=== PATIENT | male | born 1990 | race African-American/Black ===

== ENCOUNTER 2019-09-12 12:38 | Emergency (ER) | payer SELFPAY ==
[2019-09-12] MEDS ORDERED: RINGERS SOLUTION,LACTATED 1,000 ML IV ONE (13:07)
--- NOTE | 2019-09-12 13:07 | ER Document Report ---
ED GI/ - General Chief Complaint: Constipation Stated Complaint: ABDOMINAL PAIN Time Seen by Provider: 09/12/19 12:58 Mode of Arrival: Ambulatory Information source: Patient Notes: 28-year-old male with no previous medical problems presents to the emergency room complaining of rectal pain with bleeding that started 2 days ago. Abdominal pain started yesterday. States he has not been able to have a bowel movement since Saturday every time he strains to have a bowel movement he notices blood from his rectum. No stool. No history of hemorrhoids. No rectal trauma, no rectal intercourse. Has not been taking any medications for his symptoms. TRAVEL OUTSIDE OF THE [place] IN LAST 30 DAYS: No - Related Data Allergies/Adverse Reactions: No Known Allergies Allergy (Unverified 09/12/19 12:52) Past Medical History - General Information source: Patient - Social History Smoking Status: Never Smoker Chew tobacco use (# tins/day): No Frequency of alcohol use: None Drug Abuse: None Family History: Reviewed & Not Pertinent Patient has homicidal ideation: No Review of Systems - Review of Systems Constitutional: No symptoms reported Cardiovascular: No symptoms reported Respiratory: No symptoms reported Gastrointestinal: Abdominal pain, Constipation, Rectal bleeding. denies: Nausea, Vomiting Musculoskeletal: No symptoms reported Skin: denies: Rash Neurological/Psychological: No symptoms reported -: Yes All other systems reviewed and negative Physical Exam - Vital signs Vitals: Temp Pulse Resp BP Pulse Ox 98.9 F 86 16 150/82 H 90 L 09/12/19 12:50 09/12/19 12:50 09/12/19 12:50 09/12/19 12:50 09/12/19 12:50 - General General appearance: Appears well, Alert In distress: Mild - HEENT Head: Normocephalic, Atraumatic Eyes: Normal Pupils: PERRL - Respiratory Respiratory status: No respiratory distress Chest status: Nontender Breath sounds: Normal Chest palpation: Normal - Cardiovascular Rhythm: Regular Heart sounds: Normal auscultation Murmur: No - Abdominal Inspection: Normal Distension: No distension Bowel sounds: Normal Tenderness: Nontender Organomegaly: No organomegaly - Rectal Tenderness: No Stool: Heme positive Hemorrhoids: External Prostate: Boggy - Back Back: Normal, Nontender. No: CVA tenderness - Neurological Neuro grossly intact: Yes Cognition: Normal Orientation: AAOx4 Jovita Coma Scale Eye Opening: Spontaneous Jovita Coma Scale Verbal: Oriented Jovita Coma Scale Motor: Obeys Commands Urania Coma Scale Total: 15 Speech: Normal Motor strength normal: LUE, RUE, LLE, RLE Sensory: Normal - Skin Skin Temperature: Warm Skin Moisture: Dry Skin Color: Normal Course - Re-evaluation Re-evalutation: 09/12/19 15:54 Patient is resting comfortably he is currently pain-free. Reviewed CAT scan and lab results with patient. Rectal as documented. Aware that we still need to get a urinalysis. 09/12/19 17:10 Patient's resting comfortably he is currently pain-free. Reviewed all test results with patient. Counseled take medications as prescribed. Outpatient follow-up with a primary care physician as discussed. Patient was provided with on-call physician. He was given strict return to the emergency room guidelines. He is to return for any new or worsening symptoms. All questions were answered. Patient verbalized understanding and agrees with plan of care. 09/12/19 17:15 - Vital Signs Vital signs: Temp Pulse Resp BP Pulse Ox 98.9 F 80 16 117/62 97 09/12/19 18:25 09/12/19 18:25 09/12/19 18:25 09/12/19 18:25 09/12/19 18:25 - Laboratory Result Diagrams: 09/12/19 13:30 09/12/19 13:30 Laboratory results interpreted by me: 09/12/19 13:30 Sodium 136.3 L Carbon Dioxide 31 H - Diagnostic Test Radiology reviewed: Reports reviewed Discharge - Discharge Clinical Impression: Prostatitis Qualifiers: Prostatitis type: unspecified Qualified Code(s): N41.9 - Inflammatory disease of prostate, unspecified Hemorrhoids Qualifiers: Hemorrhoid type: unspecified Qualified Code(s): K64.9 - Unspecified hemorrhoids Condition: Stable Disposition: HOME, SELF-CARE Instructions: Abdominal Pain ([facility]), Hemorrhoids ([facility]), Prostatitis ([facility]) Additional Instructions: Medications as prescribed. Outpatient follow-up with primary care physician as discussed. You were provided with the on-call physician. Return for any new or worsening symptoms. Prescriptions: Hydrocortisone Acetate [Anusol-Hc] 25 mg RC BID 5 Days #10 supp.rect Doxycycline Monohydrate 100 mg PO BID #20 capsule
[2019-09-12 14:06] LABS: ABSOLUTE EOSINOPHILS # (AUTO) 0.1 10^3/uL (0.0-0.6); ABSOLUTE LYMPHOCYTES (AUTO) 1.6 10^3/uL (0.5-4.7); ABSOLUTE MONOCYTES (AUTO) 0.7 10^3/uL (0.1-1.4); ABSOLUTE NEUT (AUTO) 3.9 10^3/uL (1.7-8.2); BASOPHILS % (AUTO) 0.4 % (0-2); EOSINOPHILS % (AUTO) 0.9 % (0-6); HEMATOCRIT 41.4 % (37.9-51.0); LYMPHOCYTES % (AUTO) 25.7 % (13-45); MEAN CORPUSCULAR HEMOGLOBIN 30.1 pg (27.0-33.4); MEAN CORPUSCULAR HGB CONC 33.7 g/dL (32.0-36.0); MEAN CORPUSCULAR VOLUME 89 fl (80-97); MONOCYTES % (AUTO) 10.6 % (3-13); PLATELET COUNT 202 10^3/uL (150-450); RED BLOOD COUNT 4.64 10^6/uL (4.35-5.55); RED CELL DISTRIBUTION WIDTH 13.1 % (11.5-14.0); SEGMENTED NEUTROPHILS % (AUTO) 62.4 % (42-78); TOTAL CELLS COUNTED % (AUTO) 100 %; WHITE BLOOD COUNT 6.3 10^3/uL (4.0-10.5)
[2019-09-12 14:15] LABS: ALBUMIN 4.4 g/dL (3.5-5.0); ALKALINE PHOSPHATASE 49 U/L (38-126); ANION GAP 7 (5-19); ASPARTATE AMINO TRANSFERASE 26 U/L (17-59); BILIRUBIN,DIRECT 0.3 mg/dL (0.0-0.4); BILIRUBIN,TOTAL 0.8 mg/dL (0.2-1.3); BLOOD UREA NITROGEN 12 mg/dL (7-20); CALCIUM 9.4 mg/dL (8.4-10.2); CARBON DIOXIDE 31 mmol/L (22-30); CHLORIDE 98 mmol/L (98-107); GLUCOSE 106 mg/dL (75-110); POTASSIUM 4.5 mmol/L (3.6-5.0); TOTAL PROTEIN 7.5 g/dL (6.3-8.2)
[2019-09-12] MEDS ORDERED: KETOROLAC TROMETHAMINE INJ/PF 30 MG/1 ML SDV IV ONE (14:46)
--- NOTE | 2019-09-12 15:11 | RADIOLOGY REPORT (SQ) ---
EXAM DESCRIPTION: CT ABD/PELVIS WITH IV ONLY IMAGES COMPLETED DATE/TIME: 09/12/2019 2:33 pm REASON FOR STUDY: abdominal pain COMPARISON: None. TECHNIQUE: CT scan of the abdomen and pelvis performed using helical scanning technique with dynamic intravenous contrast injection. No oral contrast. Images reviewed with lung, soft tissue, and bone windows. Reconstructed coronal and sagittal MPR images reviewed. Delayed images for evaluation of the urinary system also acquired. All images stored on PACS. All CT scanners at this facility use dose modulation, iterative reconstruction, and/or weight based d osing when appropriate to reduce radiation dose to as low as reasonably achievable (ALARA). [facility]: Dose Right [facility]: CareDose [facility]: Dose Right [facility]: Teradose 4D [facility]: restOpolis CONTRAST TYPE AND DOSE: contrast/concentration: Isovue 350.00 mg/ml; Total Contrast Delivered: 100.0 ml; Total Saline Delivered: 72.0 ml RENAL FUNCTION: None required. The patient is less than 50 years old. RADIATION DOSE: CT Rad equipment meets quality standard of care and radiation dose reduction techniq ues were employed. CTDIvol: 16.8 - 20.6 mGy. DLP: 2269 mGy-cm.. LIMITATIONS: None. FINDINGS: LOWER CHEST: No significant findings. No nodules or infiltrates. LIVER: Normal size. No masses. No dilated ducts. SPLEEN: Normal size. No focal lesions. PANCREAS: No masses. No significant calcifications. No adjacent inflammation or peripancreatic fluid collections. Pancreatic duct not dilated. GALLBLADDER: No identified stones by CT criteria. No inflammatory changes to suggest cholecystitis. ADRENAL GLANDS: No significant masses or asymmetry. RIGHT KIDNEY AND URETER: No solid masses. No significant calcifications. No hydronephrosis or hyd roureter. LEFT KIDNEY AND URETER: No solid masses. No significant calcifications. No hydronephrosis or hydr oureter. AORTA AND VESSELS: No aneurysm. No dissection. Renal arteries, SMA, celiac without stenosis. RETROPERITONEUM: No retroperitoneal adenopathy, hemorrhage or masses. BOWEL AND PERITONEAL CAVITY: No masses or inflammatory changes. No free fluid or peritoneal masses. APPENDIX: Normal. PELVIS: There is inflammatory stranding in the deep pelvic fat along tissue planes between the rectum and prostate/seminal vesicles several small less than 5 cm perirectal lymph nodes are present on axi al images 83-90. Question anorectal inflammation versus prostatitis. No pelvic free fluid. Bladder unremarkable. ABDOMINAL WALL: No masses. No hernias. BONES: No significant or acute findings. OTHER: No other significant finding. IMPRESSION: Inflammation in the deep pelvic fat along the prostate/seminal vesicles and perirectal r egion with small lymph nodes present. Question anorectal inflammation versus prostatitis. TECHNICAL DOCUMENTATION: JOB ID: [id number] Quality ID # [id number]: Final reports with documentation of one or more dose reduction techniques (e.g., Au tomated exposure control, adjustment of the mA and/or kV according to patient size, use of iterative reconstruction technique) 2010 [employer]- All Rights Reserved Reading location - IP/workstation name: [id number]
[2019-09-12 16:34] LABS: APPEARANCE,URINE CLEAR; BILIRUBIN,URINE NEGATIVE (NEGATIVE); COLOR,URINE STRAW; GLUCOSE, URINE NEGATIVE (NEGATIVE); KETONES,URINE NEGATIVE (NEGATIVE); LEUKOCYTE ESTERASE,URINE NEGATIVE (NEGATIVE); NITRITE,URINE NEGATIVE (NEGATIVE); PROTEIN,URINE NEGATIVE (NEGATIVE); URINE SPECIFIC GRAVITY 1.058; UROBILINOGEN,URINE NEGATIVE mg/dL (<2.0)
[2019-09-12] MEDS ORDERED: ONDANSETRON HCL INJ/PF 4 MG/2 ML SDV IV ONE (16:37)
[2019-09-12] MEDS ORDERED: CEFTRIAXONE INJ 250 MG VIAL IV ONE (17:12)
[2019-09-12 18:29] VITALS: BP 117/62
== END 2019-09-12 18:31 | disposition home or self-care (01) ==
LOC: ER 12:38
DX: N41.9 Inflammatory disease of prostate, unspecified (principal); K64.9 Unspecified hemorrhoids; K59.00 Constipation, unspecified; K62.89 Other specified diseases of anus and rectum; R19.5 Other fecal abnormalities; R10.9 Unspecified abdominal pain
CPT/HCPCS: 36415; 83690; 85025; 80053; 81001; 74177; J1885; J2405; J7120; J0696

== ENCOUNTER 2020-02-21 20:19 | Emergency (ER) | payer SELFPAY ==
--- NOTE | 2020-02-21 20:29 | ER Document Report ---
ED Medical Screen (RME) - General Chief Complaint: Hemorrhoids Stated Complaint: RECTAL BLEED POSS TEAR OR HEMORRHOIDS Time Seen by Provider: 02/21/20 20:24 Notes: Patient presents complaining of possible hemorrhoids as he is having rectal tend erness and bleeding. The patient also complains of an infected sore to the right groin area that has been there for the past 4 days. Patient denies any fever. Patient denies any lightheadedness or dizziness. I have greeted and performed a rapid initial assessment of this patient. A comprehensive ED assessment and evaluation of the patient, analysis of test results and completion of the medical decision making process will be conducted by additional ED providers. TRAVEL OUTSIDE OF THE [place] IN LAST 30 DAYS: No - Related Data Allergies/Adverse Reactions: No Known Allergies Allergy (Unverified 09/12/19 12:52) Past Medical History Past Surgical History: Reports: Hx Genitourinary Surgery - CIRCUMCISION Physical Exam - Vital signs Vitals: Temp Pulse Resp BP Pulse Ox 98.1 F 92 18 174/100 H 85 L 02/21/20 20:28 02/21/20 20:28 02/21/20 20:28 02/21/20 20:28 02/21/20 20:28 - General General appearance: Appears well, Alert Notes: Rectal exam deferred as patient is in triage Course - Vital Signs Vital signs: Temp Pulse Resp BP Pulse Ox 98.1 F 92 18 174/100 H 85 L 02/21/20 20:28 02/21/20 20:28 02/21/20 20:28 02/21/20 20:28 02/21/20 20:28
--- NOTE | 2020-02-22 00:26 | ER Document Report ---
ED General - General Chief Complaint: Skin Problem Stated Complaint: RECTAL BLEED POSS TEAR OR HEMORRHOIDS Time Seen by Provider: 02/21/20 20:24 Primary Care Provider: [facility] [Provider Group] - Follow up in 1 week Notes: Patient is a 29-year-old male who comes emergency department for chief complaint of rectal bleeding. He also reports general tenderness over the area. He denies abdominal pain, he states bowel movements are somewhat uncomfortable but bearable. He denies fever, nausea vomiting. Patient also states that he has a sore that was on the right side of his genitals at the groin although this opened, drained, and is no longer painful. He denies any daily medications. He does report having hemorrhoids in the past and states he used a suppository for it. TRAVEL OUTSIDE OF THE [place] IN LAST 30 DAYS: No - Related Data Allergies/Adverse Reactions: No Known Allergies Allergy (Unverified 09/12/19 12:52) Home Medications: vit c Past Medical History - General Information source: Patient - Social History Smoking Status: Never Smoker Frequency of alcohol use: None Drug Abuse: None Lives with: Family Family History: Reviewed & Not Pertinent Past Surgical History: Reports: Hx Genitourinary Surgery - CIRCUMCISION - Immunizations Immunizations up to date: Yes Hx Diphtheria, Pertussis, Tetanus Vaccination: Yes Review of Systems - Review of Systems Constitutional: No symptoms reported EENT: No symptoms reported Cardiovascular: No symptoms reported Respiratory: No symptoms reported Gastrointestinal: See HPI Genitourinary: No symptoms reported Male Genitourinary: No symptoms reported Musculoskeletal: No symptoms reported Skin: No symptoms reported Hematologic/Lymphatic: No symptoms reported Neurological/Psychological: No symptoms reported Physical Exam - Vital signs Vitals: Temp Pulse Resp BP Pulse Ox 98.1 F 92 18 174/100 H 98 02/21/20 20:28 02/21/20 20:28 02/21/20 20:28 02/21/20 20:28 02/21/20 20:28 - Notes Notes: GENERAL: Alert, interacts well. No acute distress. HEAD: Normocephalic, atraumatic. EYES: Pupils equal, round, and reactive to light. Extraocular movements intact. ENT: Oral mucosa moist, tongue midline. Oropharynx unremarkable. Airway patent. NECK: Full range of motion. Supple. Trachea midline. No lymphadenopathy. LUNGS: Clear to auscultation bilaterally, no wheezes, rales, or rhonchi. No respiratory distress. Non-tender chest wall. HEART: Regular rate and rhythm. No murmur ABDOMEN: Soft, non-tender. Non-distended. Bowel sounds present in all 4 quadrants. GENITOURINARY: No rashes, lesions, tenderness, swelling, or concerning findings. Exam for genitourinary and rectal exam performed with Samantha MCCLAIN at bedside. RECTAL: Internal hemorrhoid noted at approximately the 4 o'clock position, no current bleeding, no noted tenderness on rectal exam. Surrounding the anus and slightly in the gluteal crevice there are noted to be multiple lesions consistent with condyloma acuminata. No noted erythema, swelling, tenderness, or other concerning findings. EXTREMITIES: Moves all 4 extremities spontaneously. No edema, normal radial and dorsalis pedis pulses bilaterally. No cyanosis. BACK: no cervical, thoracic, lumbar midline tenderness. No saddle anesthesia, normal distal neurovascular exam. Moves all extremities in full range of motion. NEUROLOGICAL: Alert and oriented x3. Normal speech. Cranial nerves II through XII grossly intact. Strength 5/5 in all extremities. PSYCH: Normal affect, normal mood. SKIN: Warm, dry, normal turgor. No rashes or lesions noted. Course - Re-evaluation Re-evalutation: Patient with small internal hemorrhoid which is unremarkable, no evidence of fissure or abscess, although he does have significant condyloma acuminata on exam. The sore over the groin/genital area is resolved and there is no tenderness, fluctuance, or concerning signs of infection or abscess. In addition to this patient is hypertensive today. He does not have a headache or chest pain. Patient does admit to being constipated. I discussed treatments, options, and decision was made to proceed with stool softener, topical medication for the anal warts, and patient will be rechecked by primary care for his blood pressure. Patient states understanding and agreement. 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 Apply the imiquimod as prescribed, follow-up closely with primary care for additional management of this. See referral. Your exam also shows an internal hemorrhoid, avoid any straining on the toilet, take the Colace stool softener for the next several days, eat plenty of fiber, stay hydrated. This should simply go away with time. The area on your groin that was infection appears to be resolved, keep the area clean with soap and water. Your blood pressure was very elevated in the emergency department today, this needs to be rechecked and you may need blood pressure medication, please follow- up with primary care closely for this as well. Return for any concerning symptoms including developing severe pain, fever, or any other concerning or worsening symptoms. Prescriptions: Imiquimod [Aldara 5% Cream 0.25 gm Pkt] 1 each TOP ASDIR PRN #24 packet PRN Reason: Docusate Sodium [Colace 100 mg Capsule] 100 mg PO ASDIR PRN #30 capsule PRN Reason: Forms: Return to Work Referrals: [facility] [Provider Group] - Follow up in 1 week
[2020-02-22 00:48] VITALS: BP 135/76
== END 2020-02-22 00:48 | disposition home or self-care (01) ==
LOC: ER 20:19
DX: A63.0 Anogenital (venereal) warts (principal); K64.8 Other hemorrhoids
CPT/HCPCS: 99284

== ENCOUNTER 2020-03-11 18:06 | Emergency (ER) | payer SELFPAY ==
--- NOTE | 2020-03-11 18:21 | ER Document Report ---
ED Medical Screen (RME) - General Chief Complaint: Rectal Bleeding Stated Complaint: RECTAL BLEEDING Time Seen by Provider: 03/11/20 18:13 Mode of Arrival: Ambulatory Information source: Patient Notes: 29-year-old male presented to ED for complaint of increased pain in his hemorrhoids. He states they are bleeding every time he has a bowel movement. He states they are not bleeding except when he has a bowel movement. He is a former smoker occasionally drinks. He states they have been much more painful and he has been using hemorrhoid suppositories. I cannot examine a hemorrhoid in the triage area so he will need to wait till he gets back to the back to have his hemorrhoids examined. I have greeted and performed a rapid initial assessment of this patient. A comprehensive ED assessment and evaluation of the patient, analysis of test results and completion of medical decision making process will be conducted by an additional ED providers. TRAVEL OUTSIDE OF THE [place] IN LAST 30 DAYS: No - Related Data Allergies/Adverse Reactions: No Known Allergies Allergy (Unverified 09/12/19 12:52) Past Medical History Past Surgical History: Reports: Hx Genitourinary Surgery - CIRCUMCISION - Immunizations Immunizations up to date: Yes Hx Diphtheria, Pertussis, Tetanus Vaccination: Yes Physical Exam - Vital signs Vitals: Temp Pulse Resp BP Pulse Ox 98.2 F 80 20 160/101 H 99 03/11/20 18:16 03/11/20 18:16 03/11/20 18:16 03/11/20 18:16 03/11/20 18:16 Course - Vital Signs Vital signs: Temp Pulse Resp BP Pulse Ox 98.2 F 80 20 160/101 H 99 03/11/20 18:16 03/11/20 18:16 03/11/20 18:16 03/11/20 18:16 03/11/20 18:16
[2020-03-11] MEDS ORDERED: HYDROCODONE/ACETAMINOPHEN 5-325 MG TABLET PO ONE (18:29)
[2020-03-11 19:04] LABS: ABSOLUTE BASOPHILS # (AUTO) 0.1 10^3/uL (0.0-0.2); ABSOLUTE EOSINOPHILS # (AUTO) 0.1 10^3/uL (0.0-0.6); ABSOLUTE LYMPHOCYTES (AUTO) 3.1 10^3/uL (0.5-4.7); ABSOLUTE MONOCYTES (AUTO) 0.7 10^3/uL (0.1-1.4); ABSOLUTE NEUT (AUTO) 7.3 10^3/uL (1.7-8.2); BASOPHILS % (AUTO) 0.6 % (0-2); EOSINOPHILS % (AUTO) 0.8 % (0-6); HEMATOCRIT 41.2 % (37.9-51.0); HEMOGLOBIN 13.7 g/dL (13.5-17.0); LYMPHOCYTES % (AUTO) 27.4 % (13-45); MEAN CORPUSCULAR HGB CONC 33.2 g/dL (32.0-36.0); MEAN CORPUSCULAR VOLUME 90 fl (80-97); MONOCYTES % (AUTO) 5.8 % (3-13); PLATELET COUNT 293 10^3/uL (150-450); RED BLOOD COUNT 4.56 10^6/uL (4.35-5.55); RED CELL DISTRIBUTION WIDTH 13.2 % (11.5-14.0); SEGMENTED NEUTROPHILS % (AUTO) 65.4 % (42-78); TOTAL CELLS COUNTED % (AUTO) 100 %; WHITE BLOOD COUNT 11.2 10^3/uL (4.0-10.5)
[2020-03-11 19:22] LABS: ALBUMIN 4.7 g/dL (3.5-5.0); ALKALINE PHOSPHATASE 45 U/L (38-126); ANION GAP 14 (5-19); ASPARTATE AMINO TRANSFERASE 29 U/L (17-59); BILIRUBIN,DIRECT 0.1 mg/dL (0.0-0.4); BILIRUBIN,TOTAL 0.3 mg/dL (0.2-1.3); BLOOD UREA NITROGEN 13 mg/dL (7-20); CARBON DIOXIDE 25 mmol/L (22-30); CHLORIDE 99 mmol/L (98-107); GLUCOSE 111 mg/dL (75-110); POTASSIUM 4.3 mmol/L (3.6-5.0)
[2020-03-11 20:36] LABS: APPEARANCE,URINE CLEAR; BILIRUBIN,URINE NEGATIVE (NEGATIVE); COLOR,URINE YELLOW; GLUCOSE, URINE NEGATIVE (NEGATIVE); KETONES,URINE NEGATIVE (NEGATIVE); LEUKOCYTE ESTERASE,URINE NEGATIVE (NEGATIVE); NITRITE,URINE NEGATIVE (NEGATIVE); PROTEIN,URINE NEGATIVE (NEGATIVE); URINE SPECIFIC GRAVITY 1.015; UROBILINOGEN,URINE NEGATIVE mg/dL (<2.0)
--- NOTE | 2020-03-12 | ER Document Report ---
ED GI Bleed / Rectal Pain - General Chief Complaint: Rectal Bleeding Stated Complaint: RECTAL BLEEDING Time Seen by Provider: 03/11/20 18:13 Primary Care Provider: KARINE VAZQUEZ MD [ACTIVE STAFF] - Follow up as needed Mode of Arrival: Ambulatory Information source: Patient, [facility] Records Notes: Patient is a 29-year-old male returns to the emergency room complaining of continuation of his hemorrhoids. Patient states he was in here approximately 1 week ago for the same he was given stool softeners and he has been using reparation H suppositories without much relief. Patient states he has not followed up with a surgeon. He states that very uncomfortable. He denies having large volume of blood out only when he wipes most of the time. 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 Denies smoking. TRAVEL OUTSIDE OF THE [place] IN LAST 30 DAYS: No - HPI Patient complains to provider of: Hemorrhoids Onset: Other - Chronic Timing/Duration: Persistent Quality of pain: Achy Severity of symptoms: Moderate Pain Level: 3 Rectal bleeding: Bleeding w/o stool Rectal foreign body: No Rectal pain with intercourse: Yes Associated symptoms: None Exacerbated by: Other - Bowel movement Relieved by: Denies Similar symptoms previously: Yes Recently seen / treated by doctor: Yes - Related Data Allergies/Adverse Reactions: No Known Allergies Allergy (Unverified 09/12/19 12:52) Past Medical History - General Information source: Patient - Social History Smoking Status: Former Smoker Chew tobacco use (# tins/day): No Frequency of alcohol use: None Drug Abuse: None Lives with: Family Family History: Reviewed & Not Pertinent Patient has homicidal ideation: No Past Surgical History: Reports: Hx Genitourinary Surgery - CIRCUMCISION, Hx Ort hopedic Surgery - knee 2014 - Immunizations Immunizations up to date: Yes Hx Diphtheria, Pertussis, Tetanus Vaccination: Yes Review of Systems - Review of Systems Constitutional: No symptoms reported EENT: No symptoms reported Cardiovascular: No symptoms reported Respiratory: No symptoms reported Gastrointestinal: No symptoms reported, Constipation, Blood streaked bowels Genitourinary: No symptoms reported Male Genitourinary: No symptoms reported Musculoskeletal: No symptoms reported Skin: No symptoms reported Hematologic/Lymphatic: No symptoms reported Neurological/Psychological: No symptoms reported -: Yes All other systems reviewed and negative Physical Exam - Vital signs Vitals: Temp Pulse Resp BP Pulse Ox 98.2 F 80 20 160/101 H 99 03/11/20 18:16 03/11/20 18:16 03/11/20 18:16 03/11/20 18:16 03/11/20 18:16 Interpretation: Hypertensive Notes: PHYSICAL EXAMINATION: GENERAL: Well-appearing, well-nourished and in no acute distress. HEAD: Atraumatic, normocephalic. LUNGS: Breath sounds clear to auscultation bilaterally and equal. No wheezes rales or rhonchi. HEART: Regular rate and rhythm without murmurs ABDOMEN: Soft, nontender, nondistended abdomen. No guarding, no rebound. No masses appreciated. Examination patient's rectal area shows patient to have external hemorrhoids probably about 3 that can be seen. They are not engorged and there is no thrombosis. No bloody streaks seen on examination. Musculoskeletal: Normal range of motion, no pitting or edema. No cyanosis. NEUROLOGICAL: t. Normal speech, normal gait. Normal sensory, motor exams PSYCH: Normal mood, normal affect. SKIN: Warm, Dry, normal turgor, no rashes or lesions noted. Course - Re-evaluation Re-evalutation: 03/12/20 02:42 Patient has a history of these was seen approximately a week ago here and placed on stool softeners. This is been an on and off thing for several months. Patient has not followed up with the surgeon at present. I have informed patient that there only way to correct this is surgically. I have given him the name of the surgeon skin care consultant for him to contact the office to see if they can accommodate him. I have expressed concern for him that if they should become engorged or increased amount of pain to return to ER for reevaluation. - Vital Signs Vital signs: Temp Pulse Resp BP Pulse Ox 98.4 F 78 16 175/100 H 97 03/12/20 00:47 03/12/20 00:47 03/12/20 00:47 03/12/20 00:47 03/12/20 00:47 - Laboratory Result Diagrams: 03/11/20 18:53 03/11/20 18:53 Laboratory results interpreted by me: 03/11/20 03/11/20 18:53 18:53 WBC 11.2 H Glucose 111 H Discharge - Discharge Clinical Impression: Hemorrhoids Qualifiers: Hemorrhoid type: third degree Qualified Code(s): K64.2 - Third degree hemorrhoids Condition: Stable Disposition: HOME, SELF-CARE Instructions: Hemorrhoids ([facility]) Additional Instructions: As we discussed if this continues to bother you you will need to follow-up with a surgeon. I have been giving them the surgeon skin care consultant tonight you can contact his office to see if he can accommodate you. Likewise I am writing you for a medication that is a suppository is called Anusol HC we will also write you for some cream for the external portion of it to. You can apply it twice a day. Continue with your stool softeners and try not to strain during bowel movements. If you do any heavy lifting also use a weight belt so you do not put a lot of pressure in your rectal area. If you have any concerns or problems or if you have large volume of blood loss return to ER for reevaluation. Likewise if they get much bigger and are very tender return to ER for reevaluation. Prescriptions: Hydrocortisone Acetate [Anusol Hc 25 mg Supp.rect] 1 supp.rect PA BID #14 supp.rect Hydrocortisone [Anusol-Hc] 30 gm RC BID #1 tube Forms: Return to Work Referrals: KARINE VAZQUEZ MD [ACTIVE STAFF] - Follow up as needed
[2020-03-12 00:49] VITALS: BP 175/100
== END 2020-03-12 00:47 | disposition home or self-care (01) ==
LOC: ER 18:06
DX: K64.2 Third degree hemorrhoids (principal); K62.5 Hemorrhage of anus and rectum; K59.00 Constipation, unspecified; Z87.891 Personal history of nicotine dependence
CPT/HCPCS: 36415; 80053; 81001; 85025; 99283